=== PATIENT | male | born 1975 | race Caucasian/White ===

== ENCOUNTER → 2017-11-02 17:24 | Outpatient (CLI) | payer BC, SELFPAY ==
--- NOTE | 2017-11-02 17:29 | CT_ITS ---
STUDY: CT MAXILLOFACIAL SINUSES REASON FOR EXAM: Male, 42 years old. Sinusitis RADIATION DOSAGE (If Supplied By Facility): CTDIvol = ( 33.06 ) mGy, DLP = ( 796.66 ) mGycm TECHNIQUE: The patient was scanned in a multi detector CT scanner. High resolution axial imaging was performed without the administration of intravenous contrast material. Sagittal and coronal images were reconstructed. Individualized dose optimization techniques were used for this CT. COMPARISON: None. FINDINGS: FRONTAL SINUSES: There is opacification of the frontal sinuses most pronounced on the right side. ETHMOIDAL SINUSES: There is near complete opacification of the ethmoid sinuses. MAXILLARY SINUSES: There is extensive opacification of the maxillary sinuses. There are rounded opacities within the left maxillary sinus present. There is bilateral opacification of the maxillary sinus ostia. SPHENOIDAL SINUSES: There is partial opacification of the sphenoid sinuses There is a rounded opacity within the mid/anterior right nasal cavity. There is a rounded opacity noted within the mid left nasal cavity as well. There is nasal septal deviation right of midline. The visualized osseous structures are normal. The visualized bilateral orbital contents are normal. CT/Sinus/Facial Bone IMPRESSION: Pansinusitis. Rounded opacities within the nasal cavities concerning for underlying polyps. Rounded opacities within the left maxillary and left sphenoid sinus may reflect underlying mucous retention cysts or polyps. Electronically Signed: Nanci Zepeda MD at 18:16 EST Tel , Service support ,
== END ==
PROVIDERS: Visit Provider Otolaryngology
DX: J32.9 Chronic sinusitis, unspecified (principal)
CPT/HCPCS: 70486

== ENCOUNTER 2017-12-11 07:04 | Day surgery (SDC) | payer BC, SELFPAY ==
[2017-12-11] VITALS (8 sets, daily range): BP systolic 119–149; BP diastolic 85–98; PULSE 51–71; RESP 14–16; TEMP 35.8–36.1; O2SAT 91–99; BMI 29.7
--- NOTE | 2017-12-11 08:00 | PCM.DC ---
You will use the following diet at home:: No restrictions Discharge Activity: Return to Normal Activity Call your doctor if your incision/area has: Increased Pain/ Swelling Additional Dressing/Incision Instructions:: saline nasal irrigations to both nostrils 5-6 times daily Allergies/Adverse Reactions: Allergies No Known Allergies Allergy (Verified 12/04/17 15:02) Medications to take at Discharge Cetirizine HCl [Zyrtec] 10 mg PO PRN PRN 12/04/17 Fluticasone/Salmeterol [Advair Hfa 115-21 Mcg Inhaler] 2 puff INHALATION BID PRN 12/04/17 Prednisone 10 mg PO UD 12/04/17 Primary Care Physician: Alesha Metzger MD [Primary Care Provider] - Please Follow Up With: Chong Sharma MD When: 1 week
[2017-12-11] MEDS: Clindamycin 900 MG/50 ML BAG 75 MG IV (08:10)
--- NOTE | 2017-12-11 08:13 | OP.PCM_ITS ---
Problem List (1) Chronic pansinusitis Status: Chronic Report of Operation Date of Procedure: 12/11/17 Pre-Operative Diagnosis: 1. chronic pansinusitis. 2. sinonasal polyposis Post-Operative Diagnosis: 1. chronic pansinusitis. 2. sinonasal polyposis Surgery/Procedure Performed:: 1. maxillary antrostomy with removal of contents, right and left. 2. ethmoidectomy, right and left. 3. sphenoidotomy, right and left. 4. extensive removal of nasal polyps, right and left. 5. frontal sinus exploration, dilation and removal of contents, right and left Type of Anesthesia:: General Specimen's removed: right and left sinus contents Drains: none Estimated Blood Loss (mL): 5cc Description of Procedure: on the day of the procedure, after appropriate informed consent was obtained, the patient was brought to the operating room and placed in supine position on the operating table. he was placed under general endotracheal anesthesia by the anesthesiologist. the sinus navigation system was set up. the bilateral nasal cavities were decongested with oxymetazoline soaked pledgets. using the zero degree endoscope, the right and left superior attachment of the middle turbinate and uncinate processes were injected with lidocaine/epinephrine. the left nasal cavity was visualized with the endoscope. the middle turbinate was medialized and the microdebrider was used to remove polyps from the middle meatus. the acclarent frontal sinus balloon sinuplasty system was placed laterally to the superior attachment of the middle turbinate. the light wire was gently advanced and frontal transillumination was seen. the balloon was advanced, inflated to 12 garrett, and retracted. an uncinectomy/antrostomy was performed using a nessa elevator and a daniella. a back-biter was used to widen the antrostomy. the ethmoid bulla was bluntly entered using a suction tip. an ethmoidectomy was performed using a curette, an upgoing blakesley and the microdebrider. this was taken superiorly to the skull base and laterally to the lamina. a stankewicz maneuver was performed and no laminar defect was seen. additional polyps were removed with the microdebrider in the ethmoid cavity and sphenoethmoidal recess. the natural sphenoid os was located, widened with a mushroom punch and contents were evacuated. the anterior/ inferior portion of the middle turbinate was excised with turbinate scizzors. the area was irrigated with copious amounts of saline. pledgets were placed, and hemostasis was achieved. a propel stent was placed in the previous middle meatus and ethmoid cavity. the right nasal cavity was visualized with the endoscope. the middle turbinate was medialized and the microdebrider was used to remove polyps from the middle meatus. the acclarent frontal sinus balloon sinuplasty system was placed laterally to the superior attachment of the middle turbinate. the light wire was gently advanced and frontal transillumination was seen. the balloon was advanced, inflated to 12 garrett, and retracted. an uncinectomy/antrostomy was performed using a nessa elevator and a daniella. a back-biter was used to widen the antrostomy. the ethmoid bulla was bluntly entered using a suction tip. an ethmoidectomy was performed using a curette, an upgoing blakesley and the microdebrider. this was taken superiorly to the skull base and laterally to the lamina. a stankewicz maneuver was performed and no laminar defect was seen. additional polyps were removed with the microdebrider in the ethmoid cavity and sphenoethmoidal recess. the natural sphenoid os was located, widened with a mushroom punch and contents were evacuated. the anterior/ inferior portion of the middle turbinate was excised with turbinate scizzors. the area was irrigated with copious amounts of saline. pledgets were placed, and hemostasis was achieved. a propel stent was placed in the previous middle meatus and ethmoid cavity.
--- NOTE | 2017-12-11 08:25 | ETH_PTH ---
PATIENT: RICHY CONNER LOC: [facility] [place] U#:[id number] AGE/SX: 42/M ROOM: RE12/11/[address]: Dr. Ian Sharma MD : 1975 BED: DIS: 12/11/2017 SPEC #: [id number] RECD: 12/11/17 10:56 STATUS: JEOVANY RENETTA #: [id number] GIANCARLO: 12/11/17 08:[address]: Ian Sharma DEPT: SURGICAL PATHOLOGY RECD BY: Yonis Blum ENTERED: 12/11/17 12:40 SP TYPE: ETH TISS OTHR DR: Dr. Alesha Metzger MD Tissues: A - POLYP B - Ethmoid sinus, NOS C - Ethmoid sinus, NOS Procedures: Surgery Specimen Level IV HEADER OPERATION: Functional endoscopic sinus surgery PRE-OP DIAGNOSIS: Chronic pansinusitis TISSUE SUBMITTED: A ? Right sinus polyp, B ? Right sinus contents, C ? Left sinus contents MICROSCOPIC DIAGNOSIS A. Right sinus polyp, biopsy: Fragments of inflamed benign mucosal polyp. See comment. B. Right sinus contents: Fragments of respiratory mucosa with chronic inflammation and bone. C. Left sinus contents: Fragments of respiratory mucosa with chronic inflammation and bone. See comment. Minute lymphoid aggregates, favor benign. SJ:rg 12/12/17 COMMENT A. A fragment of cartilaginous tissue is also noted. C. A fragment consistent with turbinates is also noted. MICROSCOPIC DESCRIPTION Slides are reviewed. GROSS DESCRIPTION A - Received in fixative is one container labeled with the patient's name and designated right sinus polyp. The specimen consists of multiple irregular fragments of yellow-horton soft tissue that in aggregate measure 1 x 0.5 x 0.2 cm. The specimen is totally submitted in one cassette. B - Received in fixative is one container labeled with the patient's name and designated right sinus contents. The specimen consists of multiple irregular fragments of pink-horton soft tissue that in aggregate measure 5 x 3 x 0.5 cm. The specimen is totally submitted in two cassettes. C - Received in fixative is one container labeled with the patient's name and designated left sinus contents. The specimen consists of multiple irregular fragments of horton soft tissue that in aggregate measure 6 x 3 x 0.7 cm. The specimen is totally submitted in one cassette. / KATINA:shelbi 12/11/17 TC:3 CPT: 21207 x3
[2017-12-11] MEDS: Oxymetazoline 0.05% 1 SPRAY SPRAY.BTL 15 SPRAY (08:36)
[2017-12-11] MEDS: HYDROcodone Bitartrate/Apap 5/325 Tablet PO (11:29)
== END 2017-12-11 12:39 | disposition home or self-care (01) ==
LOC: SDC 07:05 → AC 09:13
PROVIDERS: Visit Provider Otolaryngology
PROC: (CPT 31253; principal; 2017-12-11 07:55)
DX: J32.4 Chronic pansinusitis (principal); J33.8 Other polyp of sinus
CPT/HCPCS: 31253; 31259; 31267; 88305; J7120; J2405